=== PATIENT | female | born 1975 | race Caucasian/White ===

== ENCOUNTER 2024-06-27 16:28 | Emergency (ER) | payer OTHER ==
[2024-06-27 16:45] VITALS: BP 126/86; PULSE 77; RESP 20; TEMP 98.2; BMI 20.9
== END 2024-06-27 17:55 | disposition home or self-care (01) ==
LOC: FER 16:28
DX: S13.4XXA Sprain of ligaments of cervical spine, initial encounter (principal); R51.9 Headache, unspecified; M25.519 Pain in unspecified shoulder; V43.52XA Car driver injured in collision with other type car in traffic accident, initial encounter; Y92.410 Unspecified street and highway as the place of occurrence of the external cause
CPT/HCPCS: 99283-25